=== PATIENT | male | born 1940 | race Caucasian/White ===

== ENCOUNTER 2017-04-28 05:59 | Day surgery (SDC) | payer MEDICARE, OTHER ==
[2017-04-28] MEDS ORDERED: LACTATED RINGERS 1,000 ML IV ONE (06:48)
[2017-04-28] MEDS ORDERED: MIDAZOLAM 2 MG/2 ML VIAL IVP ONE (07:30)
[2017-04-28] MEDS ORDERED: fentaNYL 100 MCG/2 ML VIAL IVP ONE (07:30)
[2017-04-28 08:48] VITALS: BP 130/70
== END 2017-04-28 06:00 | disposition home or self-care (01) ==
LOC: SDS 05:59
PROVIDERS: ATTEND Surgery
PROC: 0DBN8ZX Excision of Sigmoid Colon, Via Natural or Artificial Opening Endoscopic, Diagnostic (ICD-10-PCS; 2017-04-28)
PROC: 0DBP8ZX Excision of Rectum, Via Natural or Artificial Opening Endoscopic, Diagnostic (ICD-10-PCS; principal; 2017-04-28 07:30)
DX: Z12.11 Encounter for screening for malignant neoplasm of colon (principal); K57.30 Diverticulosis of large intestine without perforation or abscess without bleeding; K64.8 Other hemorrhoids; K62.1 Rectal polyp; Z85.6 Personal history of leukemia; Z79.82 Long term (current) use of aspirin
CPT/HCPCS: 45380; J7120

== ENCOUNTER 2017-12-31 11:06 | Emergency (ER) | payer MEDICARE, OTHER ==
[2017-12-31 12:32] LABS: BASOPHILS # (AUTO) 0.1 10^3/uL (0.0-0.1); BASOPHILS % (AUTO) 0.6 %; EOSINOPHILS # (AUTO) 0.2 10^3/uL (0.0-0.7); EOSINOPHILS % (AUTO) 2.9 %; HGB - HEMOGLOBIN 15.4 g/dL (14.0-18.0); LYMPHOCYTES # (AUTO) 0.9 10^3/uL (1.5-3.5); LYMPHOCYTES % (AUTO) 11.5 %; MEAN CORPUSCULAR HEMOGLOBIN 32.9 pg (27.0-31.0); MEAN CORPUSCULAR HGB CONC 35.6 g/dL (32.0-36.0); MEAN CORPUSCULAR VOLUME 92.5 fL (80.0-94.0); MEAN PLATELET VOLUME 7.8 fL (7.4-11.4); MONOCYTES # (AUTO) 0.5 10^3/uL (0.0-1.0); MONOCYTES % (AUTO) 6.4 %; NEUTROPHILS # (AUTO) 6.3 10^3/uL (1.5-6.6); NEUTROPHILS % (AUTO) 78.6 %; PLT - PLATELET COUNT 201 10^3/uL (130-450); RED BLOOD COUNT 4.69 10^6/uL (4.70-6.10); RED CELL DISTRIBUTION WIDTH 13.5 % (12.0-15.0); WHITE BLOOD COUNT 8.1 x10^3/uL (4.8-10.8)
[2017-12-31] MEDS ORDERED: MECLIZINE 12.5 MG TABLET PO STA (12:35)
[2017-12-31] MEDS ORDERED: ONDANSETRON 4 MG/2 ML VIAL IVP STA (12:35)
--- NOTE | 2017-12-31 12:37 | ED Physician Documentation ---
PD HPI FOCAL NEURO - Stated complaint Stated Complaint: NEAR SYNCOPE/DIZZY - Chief complaint Chief Complaint: Neuro - History obtained from History obtained from: Patient, Family - History of Present Illness Timing - onset: Today (He got up this morning and felt like the room was spinning. It was especially bad if his head was down to the left. He has had ongoing sinus issues in about a month ago had cerumen impaction in that ear. He is asymptomatic if he sitting still. He has been nauseous when it is bad. There is no associated headache.) Review of Systems Constitutional: denies: Fever, Chills GI: reports: Nausea, Vomiting, Reviewed and negative PD PAST MEDICAL HISTORY - Past Medical History Past Medical History: Yes Cardiovascular: None Respiratory: None Endocrine/Autoimmune: None GI: GERD : None HEENT: Glaucoma, Other Psych: None Musculoskeletal: Chronic back pain Other Past Medical History: hairy cell leukemia - Past Surgical History Past Surgical History: Yes General: Colonoscopy, Other Ortho: Shoulder arthroplasty HEENT: Cataracts - Present Medications Home Medications: Ambulatory Orders Medication Instructions Recorded Confirmed RX: Aspirin Chewable [[place] 81 mg PO DAILY 08/12/12 05/05/17 Aspirin] hydroCHLOROthiazide [Hydrodiuril] 25 mg PO DAILY 08/12/12 05/05/17 RX: Losartan Potassium 25 mg PO DAILY 05/01/15 05/05/17 Omeprazole [PriLOSEC] 20 mg PO DAILY 04/25/17 05/05/17 Ondansetron Odt [Zofran] 4 mg TL Q6H PRN #10 tablet 12/31/17 RX: Meclizine [Antivert] 25 mg PO Q6H PRN #20 tablet 12/31/17 - Allergies Allergies/Adverse Reactions: Allergies Allergy/AdvReac Type Severity Reaction Status Date / Time chlorhexidine Allergy Hives Verified 04/25/17 13:01 ciprofloxacin Allergy Hives Verified 04/25/17 12:53 imipenem Allergy Unknown Verified 12/31/17 11:29 - Social History Does the pt smoke?: No Smoking Status: Former smoker Does the pt drink ETOH?: Yes ETOH Use: Liquor Does the pt have substance abuse?: No - Immunizations Immunizations are current?: Yes - POLST Patient has POLST: Yes PD ED PE NORMAL - Vitals Vital signs reviewed: Yes - General General: Alert and oriented X 3, No acute distress - HEENT HEENT: PERRL, EOMI, Pharynx benign - Neck Neck: Supple, no meningeal sign, No bony TTP - Cardiac Cardiac: RRR, No murmur - Respiratory Respiratory: No respiratory distress, Clear bilaterally - Abdomen Abdomen: Normal bowel sounds, Non tender - Back Back: No CVA TTP, No spinal TTP - Derm Derm: Normal color, Warm and dry - Extremities Extremities: No edema, No calf tenderness / cord - Neuro Neuro: Alert and oriented X 3, Normal speech NIHSS - Time Time: 12:25 - Level of Consciousness Level of consciousness: (0) Alert, Keenly responsive LOC Questions: (0) Answers both Q's correct LOC Commands: (0) Performs both correctly - Gaze Best Gaze: (0) Normal - Visual Visual: (0) No loss - Facial Palsy Facial Palsy: (0) Normal, symmetrical movement - Motor Arms (both separate) Motor Arm (right): (0) No drift Motor Arm (left): (0) No drift - Motor Legs (both separate) Motor Leg (right): (0) No drift Motor Leg (left): (0) No drift - Limb Ataxia Limb Ataxia: (0) Absent - Sensory Sensory: (0) Normal - Best Language Best Language: (0) No aphasia - Dysarthria Dysarthria: (0) Normal - Extinction and Inattention (formally neg Extinction and inattention: (0) No abnormality - Total Score/Results Total Score/Result: 0 Results - Vitals Vitals: Vital Signs - 24 hr 12/31/17 12/31/17 11:26 14:19 Temperature 35.9 C L Heart Rate 53 L 59 L Respiratory 18 16 Rate Blood Pressure 160/85 H 121/68 O2 Saturation 98 98 Oxygen O2 Source Room air - Labs Labs: Laboratory Tests 12/31/17 12/31/17 12:22 12:22 WBC 8.1 RBC 4.69 L Hgb 15.4 Hct 43.4 MCV 92.5 MCH 32.9 H MCHC 35.6 RDW 13.5 Plt Count 201 MPV 7.8 Neut # (Auto) 6.3 Lymph # (Auto) 0.9 L Sully # (Auto) 0.5 Eos # (Auto) 0.2 Baso # (Auto) 0.1 Absolute Nucleated RBC 0.00 Nucleated RBC % 0.0 Sodium 136 Potassium 3.7 Chloride 98 L Carbon Dioxide 29 Anion Gap 9.0 BUN 22 H Creatinine 1.1 Estimated GFR (MDRD) 65 L Glucose 121 H Calcium 8.9 Total Bilirubin 1.3 H AST 26 ALT 20 Alkaline Phosphatase 55 Total Protein 7.8 Albumin 4.5 Globulin 3.3 Albumin/Globulin Ratio 1.4 Lipase 25 PD MEDICAL DECISION MAKING - ED course ED course: 77-year-old gentleman with clearly peripheral vertigo. He is asymptomatic on initial evaluation. We started to attempt the Ewelina maneuver, he became too symptomatic to complete it. However after some more medications he was able to complete the Ewelina maneuver and his symptoms were resolved. Departure - Departure Disposition: 01 Home, Self Care Clinical Impression: Vertigo Condition: Good Record reviewed to determine appropriate education?: Yes Instructions: ED Vertigo Unspecified Prescriptions: RX: Meclizine [Antivert] 25 mg PO Q6H PRN #20 tablet PRN Reason: Vertigo Ondansetron Odt [Zofran] 4 mg TL Q6H PRN #10 tablet PRN Reason: Nausea / Vomiting Comments: See your primary doctor in 2-3 days. Return for new or worsening symptoms. Discharge Date/Time: 12/31/17 14:45
[2017-12-31 12:43] LABS: ALBUMIN 4.5 g/dL (3.2-5.5); ALBUMIN/GLOBULIN RATIO 1.4 (1.0-2.2); BILIRUBIN,TOTAL 1.3 mg/dL (0.2-1.0); CALCIUM 8.9 mg/dL (8.5-10.3); CREATININE 1.1 mg/dL (0.6-1.2); TOTAL PROTEIN 7.8 g/dL (6.7-8.2)
[2017-12-31] MEDS ORDERED: LORazepam 2 MG/ML VIAL IVP STA (13:57)
[2017-12-31 14:21] VITALS: BP 121/68
== END 2017-12-31 14:45 | disposition home or self-care (01) ==
LOC: ED 11:06
DX: H81.399 Other peripheral vertigo, unspecified ear (principal); K21.9 Gastro-esophageal reflux disease without esophagitis; Z87.891 Personal history of nicotine dependence
CPT/HCPCS: 36415; 80053; 83690; 85025; 96374; 96375; 99283; A9270; J2060

== ENCOUNTER 2018-01-28 08:48 | Outpatient (CLI) | payer MEDICARE, OTHER ==
--- NOTE | 2018-01-28 12:16 | CT Report ---
Reason: CHR SINUSITIS,NASAL OBSTRUCTION Procedure Date: 01/28/2018 Accession Number: [id number] / [id number] Procedure: CT - Sinuses CPT Code: FULL RESULT: EXAM: CT SINUS EXAM DATE: 01/28/2018 09:04 AM. HISTORY: CHR SINUSITIS,NASAL OBSTRUCTION. COMPARISONS: None. TECHNIQUE: Routine multi-axial CT imaging performed through the sinuses. Iodinated IV contrast: None. Reconstructions: Multiplanar reformats. In accordance with CT protocol optimization, one or more of the following dose reduction techniques were utilized for this exam: automated exposure control, adjustment of mA and/or KV based on patient size, or use of iterative reconstructive technique. FINDINGS: RIGHT Frontal: Mild mucosal thickening. Ethmoid: Mild mucoperiosteal thickening with demineralization. Maxillary: Minimal mucosal thickening. Sphenoid: Normal. Drainage Pathways: The frontal recess, ostiomeatal complex and sphenoethmoidal recess are patent and normal. LEFT Frontal: Mild mucosal thickening. Ethmoid: Mild mucoperiosteal thickening with demineralization. Maxillary: Small mucoid retention cyst at the floor, possibly odontogenic. Sphenoid: Normal. Drainage Pathways: The frontal recess, ostiomeatal complex and sphenoethmoidal recess are patent and normal. Nasal Cavity: Mild to moderate mucosal thickening. No anatomic abnormality. Osseous Structures: Unremarkable. Orbits: Unremarkable. Other: None. IMPRESSION: Mild sinusitis, chronic appearance. RADIA
== END 2018-01-28 08:49 | disposition home or self-care (01) ==
LOC: DI 08:48
PROVIDERS: ATTEND Otolaryngology
DX: J32.8 Other chronic sinusitis (principal); J34.89 Other specified disorders of nose and nasal sinuses
CPT/HCPCS: 70486

== ENCOUNTER 2019-01-13 15:11 | Outpatient (CLI) | payer MEDICARE, OTHER ==
--- NOTE | 2019-01-14 13:22 | XRAY Report ---
Reason: NECK BACK PAIN,CERVICAL RADICULOPATHY,RT SCIATIC Procedure Date: 01/13/2019 Accession Number: [id number] / [id number] Procedure: XR - Cervical Spine 2 View CPT Code: Final Report FULL RESULT: EXAM: CERVICAL SPINE RADIOGRAPHY EXAM DATE: 01/13/2019 04:09 PM. CLINICAL HISTORY: Neck and back pain, cervical radiculopathy, right sciatic. COMPARISONS: XR CHEST PA AND LAT 11/16/2009 2:37 PM THORACIC SPINE 3 VIEW 01/13/2019 3:45 PM. TECHNIQUE: 3 views. Correlation is also with the lateral swimmer's view obtained in conjunction with the thoracic spine exam, same day. FINDINGS: Alignment: Normal. No spondylolisthesis or scoliosis. Bones: The cervical vertebral bodies and posterior elements are well visualized from the skull base through C7-T1. No fractures or bone lesions. Disks: Moderate severity C5-C6 and C6-C7 and less so C4-C5 disk space narrowing and mild to moderate anterior vertebral body spurring. Facets: Multilevel bilateral degenerative facet disease, most evident on the left at C2-C3 through C4-C5. Soft Tissues: Possible ascending aortic ectasia. This appearance could better assessed by standard views of the chest. The visualized lung apices are clear. IMPRESSION: 1. No acute abnormality. 2. Degenerative disk disease at C4-C5 through C6-C7. 3. Multilevel bilateral degenerative facet disease. 4. Possible ascending aortic ectasia. This could be better assessed by standard views of the chest. RADIA
--- NOTE | 2019-01-14 13:22 | XRAY Report ---
Reason: NECK BACK PAIN,CERVICAL RADICULOPATHY,RT SCIATIC Procedure Date: 01/13/2019 Accession Number: [id number] / [id number] Procedure: XR - Lumbar Spine 2 View CPT Code: Final Report FULL RESULT: EXAM: LUMBOSACRAL SPINE RADIOGRAPHY EXAM DATE: 01/13/2019 04:09 PM. CLINICAL HISTORY: Neck back pain, cervical radiculopathy, right sciatic. COMPARISONS: ABDOMEN/PELVIS W/WO 01/06/2013 1:41 PM. TECHNIQUE: 2 views. FINDINGS: Alignment: Normal. No spondylolisthesis or scoliosis. Bones: Five [id number] lumbar vertebral bodies are present.No fractures or bone lesions. Disks: Moderate to severe L2-L3 disk space narrowing and endplate degenerative change, substantially progressed compared with 2012. Moderate disk space narrowing at L3-L4, L4-L5 and less so at L2-L3, with mild interval progression. Facets: Evidence of degenerative facet disease at L4-L5 and L5-S1 and less so L3-L4, with evidence of progression. Sacroiliac Joints: Unremarkable. Soft Tissues: Normal. The visualized bowel gas pattern is normal. IMPRESSION: 1. No acute abnormality. 2. Degenerative disk disease, greatest at L2-L3 and progressed compared with 2012. 3. Lower lumbar degenerative facet disease, with evidence of progression. RADIA
--- NOTE | 2019-01-14 13:45 | XRAY Report ---
Reason: RT SCIATICA/ BACK PAIN Procedure Date: 01/13/2019 Accession Number: [id number] / [id number] Procedure: XR - Thoracic Spine 2 View CPT Code: Final Report FULL RESULT: EXAM: THORACIC SPINE RADIOGRAPHY EXAM DATE: 01/13/2019 04:09 PM. CLINICAL HISTORY: Right sciatica/back pain. COMPARISON: None. TECHNIQUE: 3 views. FINDINGS: Alignment: Minimal dextroconvex thoracic curvature. Bones: No fractures or bone lesions. Disks: Very mild mid to lower thoracic disk space narrowing and vertebral body spurring. Soft Tissues: Normal. The visualized lungs and cardiomediastinal silhouette are normal. IMPRESSION: 1. No acute head abnormality. 2. Very mild degenerative disk disease. RADIA
== END 2019-01-13 15:12 | disposition home or self-care (01) ==
LOC: DI 15:11
PROVIDERS: ATTEND Physician Assistant Medical
DX: M50.321 Other cervical disc degeneration at C4-C5 level (principal); M47.812 Spondylosis without myelopathy or radiculopathy, cervical region; M51.36 Other intervertebral disc degeneration, lumbar region; M47.816 Spondylosis without myelopathy or radiculopathy, lumbar region; M47.817 Spondylosis without myelopathy or radiculopathy, lumbosacral region; M51.34 Other intervertebral disc degeneration, thoracic region
CPT/HCPCS: 72040; 72070; 72100

== ENCOUNTER 2019-01-26 13:01 | Outpatient (CLI) | payer MEDICARE, OTHER ==
--- NOTE | 2019-01-27 11:12 | XRAY Report ---
Reason: AORTIC ECTASIA, UNSPECIFIED SITE Procedure Date: 01/26/2019 Accession Number: [id number] / [id number] Procedure: XR - Chest 2 View X-Ray CPT Code: 15755 Final Report FULL RESULT: EXAM: CHEST RADIOGRAPHY EXAM DATE: 01/26/2019 01:33 PM. CLINICAL HISTORY: Aortic ectasia, unspecified site. COMPARISON: CHEST PA AND LAT 11/16/2009. TECHNIQUE: 2 views. FINDINGS: Lungs/Pleura: No focal opacities evident. No pleural effusion. No pneumothorax. Mild hyperinflation. Mediastinum: Heart and mediastinal contours are stable. No convincing evidence for aortic ectasia. Other: Mild degenerative changes in the thoracic spine. Prosthetic right humeral head is incidental. IMPRESSION: 1. Normal mediastinal contour. No convincing evidence for aortic ectasia. Consider thoracic CT for more detailed evaluation. 2. Stable hyperinflation. RADIA
== END 2019-01-26 13:02 | disposition home or self-care (01) ==
LOC: DI 13:01
PROVIDERS: ATTEND Physician Assistant Medical
DX: R93.1 Abnormal findings on diagnostic imaging of heart and coronary circulation (principal)
CPT/HCPCS: 71046

== ENCOUNTER 2020-02-27 09:03 | Outpatient (CLI) | payer MEDICARE, OTHER ==
--- NOTE | 2020-02-27 13:14 | Ultrasound Report ---
PROCEDURE: Abdomen Limited INDICATIONS: HAIRY CELL LEUKEMIA TECHNIQUE: Real-time focused scanning was performed of the abdomen, with image documentation. COMPARISON: None available. FINDINGS: The spleen measures 12 x 4.9 x 12.2 cm. No focal splenic lesions are seen. IMPRESSION: Borderline prominent spleen size, measuring up to 12.2 cm. Reviewed by: Jermain Singer MD on 02/27/2020 12:13 PM [place] Approved by: Jermain Singer MD on 02/27/2020 12:13 PM [place] Station ID: [id number]
== END 2020-02-27 09:04 | disposition home or self-care (01) ==
LOC: DI 09:03
PROVIDERS: ATTEND Internal Medicine
DX: R16.1 Splenomegaly, not elsewhere classified (principal)

== ENCOUNTER 2020-03-22 08:00 | Outpatient (CLI) | payer MEDICARE, OTHER | END 2020-03-22 23:59 | disposition home or self-care (01) | LOC: LAB.R 08:00 | PROVIDERS: ATTEND Internal Medicine Hematology & Oncology | DX: D64.9 Anemia, unspecified (principal); C91.41 Hairy cell leukemia, in remission | CPT/HCPCS: 82270 ==

== ENCOUNTER 2023-01-08 13:17 | Outpatient (CLI) | payer MEDICARE, OTHER ==
--- NOTE | 2023-01-08 15:16 | XRAY Report ---
PROCEDURE: Lumbar Spine 2 View INDICATIONS: LUMBAGO TECHNIQUE: 3 views of the lumbar spine were acquired. COMPARISON: Lumbar spine radiographs 01/13/2019. FINDINGS: Bones: 5 [id number] vertebrae are present. No vertebral body compression fractures. No suspici ous bony lesions. Multilevel disc height loss, endplate process and osteophytosis most notably and s evere at L2-L3. Overall degeneration has progressed since 01/13/2019. Soft tissues: Overlying bowel gas pattern is normal. No suspicious soft tissue calcifications. IMPRESSION: Compared to prior radiograph 01/13/2019, increased disc degeneration, most notably and s evere at L2-L3. Reviewed by: April Galvez MD on 01/08/2023 3:14 PM PST Approved by: April Galvez MD on 01/08/2023 3:14 PM PST Station ID: [id number]
== END 2023-01-08 13:18 | disposition home or self-care (01) ==
LOC: DI 13:17
PROVIDERS: ATTEND Physician Assistant
DX: M54.41 Lumbago with sciatica, right side (principal); M47.816 Spondylosis without myelopathy or radiculopathy, lumbar region

== ENCOUNTER 2023-01-28 09:27 | Outpatient (CLI) | payer MEDICARE, OTHER ==
--- NOTE | 2023-01-28 11:44 | MRI Report ---
PROCEDURE: LUMBAR SPINE WO INDICATIONS: DDD LUMBAR SPIN TECHNIQUE: Noncontrast sagittal T1 spin echo and T2 fast echo, sagittal STIR, axial T1 and T2 fast spin echo thr ough the lumbar spine. In cases with scoliosis, additional coronal T2 fast spin echo may be performe d. COMPARISON: None. FINDINGS: Image quality: Excellent. Alignment and Curvature: There is normal bony alignment. Bone Marrow: Multilevel degenerative endplate changes. Marrow is of normal overall signal. No acute vertebral body compression fractures. Spinal Cord: Conus medullaris terminates at the L1-L2 level. Visualized cord demonstrates normal si gnal and size. Paraspinous Soft Tissues: No paravertebral masses. There is a 1.0 cm T2 hypointense lesion at the i nferior pole of the left kidney. Additional bilateral subcentimeter simple appearing renal cysts are present. T12-L1: Disc desiccation, height loss and a posterior disc bulge. Mild facet arthropathy. No central canal or neuroforaminal stenosis. L1-L2: Disc desiccation, height loss and a posterior disc bulge. Facet arthropathy. No central can al stenosis. Mild bilateral neuroforaminal stenosis. L2-L3: Severe disc desiccation and height loss. Posterior disc bulge. Facet arthropathy. No centra l canal stenosis. Mild bilateral neuroforaminal stenosis. L3-L4: Disc desiccation and height loss. Posterior disc bulge. Facet arthropathy and thickened liga menta flava. Moderate to severe central canal stenosis. Mild bilateral neuroforaminal stenosis. L4-L5: Disc desiccation, height loss and a posterior disc bulge. Facet arthropathy and thickening o f ligamentum flavum. Mild central canal stenosis. Mild bilateral neuroforaminal stenosis. L5-S1: Disc desiccation, height loss and a posterior disc bulge. Facet arthropathy. No central stephanie l stenosis. Moderate bilateral neuroforaminal stenosis. IMPRESSION: 1.Multilevel degenerative changes of the lumbar spine as described above. 2.There is moderate to severe central canal stenosis at L3-L4. 3.Moderate bilateral neuroforaminal stenosis at L5-S1. Mild multilevel neuroforaminal stenosis at oth er levels. 4.There is a 1.0 cm T2 hypointense lesion at the inferior pole left kidney, indeterminate and renal u ltrasound is recommended. Reviewed by: Quincy Campos MD on 01/28/2023 11:42 AM PST Approved by: Quincy Campos MD on 01/28/2023 11:42 AM PST Station ID: [id number]
== END 2023-01-28 09:28 | disposition home or self-care (01) ==
LOC: DI 09:27
PROVIDERS: ATTEND Physician Assistant
DX: M47.26 Other spondylosis with radiculopathy, lumbar region (principal); M47.27 Other spondylosis with radiculopathy, lumbosacral region; M48.061 Spinal stenosis, lumbar region without neurogenic claudication; M48.07 Spinal stenosis, lumbosacral region; N28.89 Other specified disorders of kidney and ureter

== ENCOUNTER 2023-02-10 16:35 | Outpatient (CLI) | payer MEDICARE, OTHER ==
--- NOTE | 2023-02-11 13:25 | Ultrasound Report ---
PROCEDURE: Retroperitoneal INDICATIONS: ABN MRI OF KIDNEY TECHNIQUE: Real-time scanning was performed of the retroperitoneal organs, with image documentation. COMPARISON: Lumbar spine MRI 01/28/2023. CT abdomen pelvis 01/06/2023. FINDINGS: Kidneys: Kidneys are normal in size. Right kidney measures 11.7 cm long; left kidney measures 11.3 cm long. Right renal cortical thickness is 1.8 cm; left renal cortical thickness is 1.2 cm. No marylou d masses, hydronephrosis. Echogenic focus in the right kidney upper pole measuring 0.4 cm. A small an echoic cyst in the mid right kidney measuring 1 cm. No internal vascularity. Small anechoic appearing left renal cysts, largest measuring up 1.4 cm at the inferior pole. Small cortical cyst at the infer ior pole left kidney measuring 0.6 cm. This is hypoechoic or anechoic. This may correspond to the T2 hypointense is seen on recent MRI. Bladder: Pre-void bladder volume is 145 mL. Post-void residual is 11 mL. Pre-void images demonstra te no intraluminal masses or stones. Ureteral jets are not seen. Miscellaneous: No free abdominal fluid. Prostate measures 4.6 x 4.4 x 4.3 cm. IMPRESSION: 1. Small cyst at the inferior pole the left kidney measuring 0.6 cm which may correspond to the T2 hy pointense cyst seen on recent lumbar spine MRI. No internal blood flow is seen. This most likely repr esents a proteinaceous or hemorrhagic cyst. Although this is not confirmed on remote CT from 2013. A follow-up renal protocol MRI could be considered for further evaluation. 2. No hydronephrosis. 3. Prominent prostate gland. Reviewed by: Jaquan Hansen MD on 02/11/2023 1:24 PM PST Approved by: Jaquan Hansen MD on 02/11/2023 1:24 PM PST Station ID: [id number]
== END 2023-02-10 16:36 | disposition home or self-care (01) ==
LOC: DI 16:35
PROVIDERS: ATTEND Physician Assistant
DX: N28.1 Cyst of kidney, acquired (principal)

== ENCOUNTER 2023-04-21 10:36 | Outpatient (CLI) | payer MEDICARE, OTHER ==
[2023-04-21 11:01] LABS: CHOLESTEROL 162 mg/dL; HDL CHOLESTEROL 54 mg/dL; LDL CHOLESTEROL,CALCULATED 77 mg/dL; LDL/HDL RATIO 1.4 (<3.6); TRIGLYCERIDES 155 mg/dL (48-352); VLDL CHOLESTEROL 31 mg/dL
== END 2023-04-21 10:37 | disposition home or self-care (01) ==
LOC: LAB 10:36
PROVIDERS: ATTEND Internal Medicine Cardiovascular Disease
DX: I48.0 Paroxysmal atrial fibrillation (principal); I25.10 Atherosclerotic heart disease of native coronary artery without angina pectoris
CPT/HCPCS: 36415; 80061; 83721

== ENCOUNTER 2023-06-30 10:52 | Outpatient (CLI) | payer MEDICARE, OTHER | END 2023-06-30 10:53 | disposition home or self-care (01) | LOC: LAB 10:52 | PROVIDERS: ATTEND Internal Medicine Cardiovascular Disease | DX: I25.10 Atherosclerotic heart disease of native coronary artery without angina pectoris (principal) | CPT/HCPCS: 36415; 82085; 85651 ==

== ENCOUNTER 2023-07-24 10:43 | Outpatient (CLI) | payer MEDICARE, OTHER | END 2023-07-24 10:44 | disposition home or self-care (01) | LOC: LAB 10:43 | PROVIDERS: ATTEND Physician Assistant | DX: N40.1 Benign prostatic hyperplasia with lower urinary tract symptoms (principal) | CPT/HCPCS: 36415; 84153 ==

== ENCOUNTER 2023-08-27 11:58 | Outpatient (CLI) | payer MEDICARE, OTHER ==
[~2023-08-27 11:58] MED LIST: GADOTERATE MEGLUMINE 10 MMOL/20 ML VIAL ONE
[2023-08-27 12:23] LABS: CREATININE 1.3 mg/dL (0.6-1.3)
--- NOTE | 2023-08-27 15:58 | MRI Report ---
PROCEDURE: Abdomen W/WO INDICATIONS: ABN IMAGING OF LEFT KIDNEY CONTRAST: clariscan 16.4ml TECHNIQUE: Coronal ultra fast SE, axial 2D spoiled GE in- and [id number]; axial breath-hold T2 fast SE. Dynam ic axial ultra fast GE during the administration of contrast; post-contrast coronal ultra fast GE or 2D spoiled GE with fat saturation from the hepatic dome to the iliac crests. Optional diffusion weig hted imaging and ADC may be performed. COMPARISON: Lumbar MRI 01/28/2023, renal ultrasound 02/10/2023. FINDINGS: Image quality: Suboptimal due to motion artifact. Lung bases and heart: Cardiomegaly. Liver: No solid mass. Gallbladder and biliary tree: Gallbladder sludge. No wall thickening. No biliary dilation. Spleen: No splenomegaly. Pancreas: No pancreatic ductal dilation. Adrenals: No adrenal nodule. Kidneys and ureters: No hydronephrosis. No renal cystic lesion which requires follow up. No solid mas s. Multiple fluid intensity and hemorrhagic cysts within the kidneys. No significant complexity on th e contrast-enhanced sequences. No suspicious enhancement on the subtraction images. Bowel and peritoneum: No bowel distension. No pathologic free fluid. Diverticulosis without evidence of diverticulitis. Lymph nodes: No central or retroperitoneal adenopathy. Vessels: No infrarenal aortic aneurysm. Bones: No aggressive osseous abnormality. Other: No significant ventral hernia. IMPRESSION: Benign left renal proteinaceous/hemorrhagic cyst corresponding to the T2 hypointense cyst seen on [facility] lumbar MRI. No renal cystic lesions with suspicious features. Reviewed by: Ji Mijares MD on 08/27/2023 3:57 PM PDT Approved by: Ji Mijares MD on 08/27/2023 3:57 PM PDT Station ID: [id number]
[2023-08-27] MEDS: GADOTERATE MEGLUMINE 10 MMOL/20 ML VIAL IVP ONE (16:17)
== END 2023-08-27 11:59 | disposition home or self-care (01) ==
LOC: LAB 11:58
PROVIDERS: ATTEND Physician Assistant
DX: N28.1 Cyst of kidney, acquired (principal)
CPT/HCPCS: 36415; 74183; 82565; A9575

== ENCOUNTER 2023-11-10 12:23 | Outpatient (CLI) | payer MEDICARE, OTHER ==
--- NOTE | 2023-11-12 00:04 | Ultrasound Report ---
PROCEDURE: Carotid Doppler Complete INDICATIONS: TIA TECHNIQUE: Duplex carotid ultrasound was obtained and sales and merchandising representative images were recorded with veloc ity measurements. Any estimate of stenosis was obtained with reference to standards endorsed by the [employer] COMPARISON: None. FINDINGS: Right side: Brachial blood pressure: 119/57 mm Hg. Common carotid artery peak systolic velocity: 58 cm/sec. Internal carotid artery peak systolic velocity: 96 cm/sec. Internal carotid artery end diastolic velocity: 34 cm/sec. External carotid artery peak systolic velocity: 24 cm/sec. ICA/CCA peak systolic ratio: 1.6 . Tanner scale imaging description: Mild atherosclerotic plaque Percent internal carotid artery stenosis: Less than 50. Vertebral artery: Flow direction is antegrade. Left side: Brachial blood pressure: 119/57 mm Hg. Common carotid artery peak systolic velocity: 1.2 cm/sec. Internal carotid artery peak systolic velocity: 131 cm/sec. Internal carotid artery end diastolic velocity: 40 cm/sec. External carotid artery peak systolic velocity: 23 cm/sec. ICA/CCA peak systolic ratio: 1.28 . Tanner scale imaging description: Mild atherosclerotic plaque Percent internal carotid artery stenosis: Greater than 50. Vertebral artery: Flow direction is antegrade. IMPRESSION: 1. Peak systolic velocity in the left consistent with a 50-69% stenosis left proximal ICA. 2. Less than 50% stenosis noted in the right proximal ICA Reviewed by: Javier Kamara MD on 11/11/2023 11:03 PM [place] Approved by: Javier Kamara MD on 11/11/2023 11:03 PM AKBRIAN Station ID: [id number]
== END 2023-11-10 12:24 | disposition home or self-care (01) ==
LOC: DI 12:23
PROVIDERS: ATTEND Ophthalmology
DX: I65.23 Occlusion and stenosis of bilateral carotid arteries (principal); H53.123 Transient visual loss, bilateral
CPT/HCPCS: 93880